=== PATIENT | male | born 1995 | race African-American/Black ===

== ENCOUNTER 2017-09-13 22:48 | Emergency (ER) | payer MEDICAID, MEDICARE, OTHER ==
[~2017-09-13] VITALS: Ht 193 cm; Wt 64.5 kg
[2017-09-13 22:49] VITALS: BP 140/64
[2017-09-13] MEDS ORDERED: SENN-87 PO (23:38)
[2017-09-13] MEDS ORDERED: BACLOFEN (23:38)
== END 2017-09-14 01:55 | disposition home or self-care (01) ==
LOC: ED 09-14 01:49
DX: R31.0 Gross hematuria (principal)
CPT/HCPCS: 81001; 87077; 87086; 87147; 99284

== ENCOUNTER 2017-09-15 11:13 | Emergency (ER) | payer MEDICAID ==
[~2017-09-15] VITALS: Ht 193 cm; Wt 72.7 kg
[~2017-09-15 11:13] MED LIST: BACLOFEN; SENN-87 PO
[2017-09-15 11:16] VITALS: BP 129/81
== END 2017-09-15 12:21 | disposition home or self-care (01) ==
LOC: ED 12:15
DX: G82.20 Paraplegia, unspecified (principal)
CPT/HCPCS: 51701; 99284; P9612

== ENCOUNTER 2017-10-14 14:10 | Emergency (ER) | payer MEDICAID ==
[~2017-10-14] VITALS: Ht 193 cm; Wt 65.0 kg
[2017-10-14 14:16] VITALS: BP 131/77
== END 2017-10-14 14:46 | disposition home or self-care (01) ==
LOC: ED 14:20
DX: Z76.0 Encounter for issue of repeat prescription (principal); G82.20 Paraplegia, unspecified
CPT/HCPCS: 99283

== ENCOUNTER 2018-06-14 11:35 | Emergency (ER) | payer MEDICAID ==
[2018-06-14 11:58] VITALS: BP 100/64
[2018-06-14 13:01] LABS: MICROSCOPIC INDICATED
[2018-06-14 13:06] LABS: CULTURE INDICATED? YES
== END 2018-06-14 13:53 | disposition home or self-care (01) ==
LOC: ED 12:45
DX: R30.0 Dysuria (principal); G82.20 Paraplegia, unspecified
CPT/HCPCS: 81001; 87086; 99284

== ENCOUNTER 2019-05-07 10:56 | Emergency (ER) | payer MEDICAID ==
[~2019-05-07] VITALS: Ht 193 cm; Wt 65.9 kg
[~2019-05-07 10:56] MED LIST changes: -SENN-87 PO; +SENN-88 PO
[2019-05-07 10:58] VITALS: BP 131/81
== END 2019-05-07 13:50 | disposition home or self-care (01) ==
LOC: ED 13:20
DX: Z00.8 Encounter for other general examination (principal)
CPT/HCPCS: 99281

== ENCOUNTER 2019-07-28 17:27 | Emergency (ER) | payer MEDICAID ==
[~2019-07-28] VITALS: Ht 193 cm; Wt 63.6 kg
[2019-07-28 17:29] VITALS: BP 124/78
--- NOTE | 2019-07-28 18:02 | NUR ---
Provider to bedside to assess wound with policy writer typist as heel breaster Partial thickness wound noted to right glute. Wound clean. plan to re-dress then provided referral for outpatient wound care
--- NOTE | 2019-07-28 18:50 | NUR ---
left gluteal wound cleansed with wound cleanser then medihoney placed on wound followed by optifoam dressing Per provider ordered attempted to locate of donut for pressure relieving in central supply to no avail. patient reccomended to but foam cusion and cut out portion where existing eound is as well as importance of moving hips prior to discharge patient provided with 4 extra optifoam dressings as well as the rest of the tube of medihoney for use until he can see the referred auto clutch specialist
== END 2019-07-28 19:40 ==
LOC: ED 17:49
DX: L89.313 Pressure ulcer of right buttock, stage 3 (principal)
CPT/HCPCS: 99283

== ENCOUNTER 2019-08-28 09:48 | Emergency (ER) | payer MEDICAID ==
[~2019-08-28] VITALS: Ht 198.1 cm; Wt 65.0 kg
--- NOTE | 2019-08-28 12:12 | NUR ---
Patient/Caregiver given discharge instructions and they have confirmed that they understand the instructions. Patient ambulatory with steady gait.
[2019-08-28 12:16] VITALS: BP 143/69
== END 2019-08-28 12:18 | disposition home or self-care (01) ==
LOC: ED 12:15
DX: G82.20 Paraplegia, unspecified (principal); Z76.0 Encounter for issue of repeat prescription
CPT/HCPCS: 99281

== ENCOUNTER 2021-06-09 13:48 | Inpatient (IN) | payer MEDICAID ==
[~2021-06-09] VITALS: Ht 208.3 cm; Wt 62.1 kg
[~2021-06-09 13:48] MED LIST changes: +SENN-190 PO; -SENN-88 PO
[2021-06-09 14:38] LABS: BASOPHILS % (AUTO) 0 % (0-1); EOSINOPHILS % (AUTO) 0 % (1-7); LYMPHOCYTES % (AUTO) 4 % (22-44); MEAN CORPUSCULAR HEMOGLOBIN 27.4 pg (27.5-34.5); MEAN CORPUSCULAR HGB CONC 33.2 g/dL (33.2-36.2); MONOCYTES % (AUTO) 5 % (2-9); NEUTROPHILS % (AUTO) 90 % (42-75); PLATELET COUNT 211 x10^3/uL (130-400); RED BLOOD COUNT 5.18 x10^6/uL (4.38-5.82); RED CELL DISTRIBUTION WIDTH 14.1 % (9.4-14.8)
[2021-06-09 14:48] LABS: ALBUMIN 3.5 g/dL (3.4-5.0); ANION GAP 9 mmol/L (5-15); CALCIUM 8.9 mg/dL (8.5-10.1); CHLORIDE 102 mmol/L (98-107)
--- NOTE | 2021-06-09 15:32 | NUR ---
priming machine operator note: Pt to room from lobby.
--- NOTE | 2021-06-09 15:37 | NUR ---
PT TO ROOM, PT C/O UTI SYMPTOMS OF FEVER, BODY ACHES, GENERALIZED PAIN WITH POLO. PT STATES THESE ARE THE SAME SYMPTOMS OF HIS LAST UTI. 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 PT CATH HIMSELF USUALLY. CALL LIGHT WITHIN REACH
--- NOTE | 2021-06-09 15:41 | NUR ---
ERP AT BS FOR EVAL
[2021-06-09] MEDS ORDERED: ACETAMINOPHEN 500 MG TABLET ONE (15:59)
--- NOTE | 2021-06-09 16:15 | NUR ---
PIV PLACED, LABS DRAWN. PT MEDICATED PER EMAR.
--- NOTE | 2021-06-09 16:20 | NUR ---
BLOOD CULTURES DRAWN X2
[2021-06-09] MEDS ORDERED: SODIUM CHLORIDE 0.9% 1,000ML IVBOLUS ONE (16:30)
[2021-06-09] MEDS ORDERED: ACETAMINOPHEN 500 MG TABLET PO ONE (16:30)
--- NOTE | 2021-06-09 17:05 | NUR ---
PT TOLERATED STRAIGHT CATH WELL. TISHA. URINE SAMPLE WALKED TO LAB
[2021-06-09 17:25] LABS: MICROSCOPIC INDICATED
[2021-06-09] MEDS ORDERED: CEFTRIAXONE 1,000 MG in DEXTROSE 5% 50 ML IVPB ONE (17:30)
--- NOTE | 2021-06-09 18:54 | NUR ---
REPORT TO ZEESHAN KHALIL
--- NOTE | 2021-06-09 18:55 | NUR ---
RECEIVED REPORT OF STEPHANI BYERS. TRANSFER OF CARE
--- NOTE | 2021-06-09 18:58 | NUR ---
US AT BEDSIDE
[2021-06-09] MEDS ORDERED: ONDANSETRON ODT 4 MG PO PRN (19:30)
[2021-06-09] MEDS ORDERED: ACETAMINOPHEN 325 MG TABLET PO PRN (19:30)
[2021-06-09] MEDS ORDERED: POLYETHYLENE GLYCOL 17 GM PACKET PO PRN (19:30)
[2021-06-09] MEDS ORDERED: CEFTRIAXONE 1,000 MG in DEXTROSE 5% 50 ML IVPB SCH (19:30)
[2021-06-09] MEDS ORDERED: BISACODYL 10 MG SUPP PR PRN (19:30)
--- NOTE | 2021-06-09 19:53 | NUR ---
Patient is resting comfortably in bed. Bed in lowest, rails engaged, call light on lap. Vital Signs within normal limits. WCTM. GF AT BEDSIDE. TISHA
--- NOTE | 2021-06-09 19:56 | NUR ---
GAVE REPORT TO ANNALISA BYERS
[2021-06-09 20:24] VITALS: BP 113/70
[2021-06-09] MEDS: HEPARIN 5,000 UNITS/ML, 1ML SQ SCH (20:43)
[2021-06-09] MEDS: SODIUM CHLORIDE 0.9% 1,000 ML IV SCH (20:43)
[2021-06-10 02:00] VITALS: BP 94/58
[2021-06-10] MEDS: HEPARIN 5,000 UNITS/ML, 1ML SQ SCH ×3 (03:17→19:40)
[2021-06-10] MEDS: SODIUM CHLORIDE 0.9% 1,000 ML IV SCH ×3 (03:17→19:39)
[2021-06-10 08:25] VITALS: BP 112/65
[2021-06-10] MEDS: SENNOSIDES 8.6 MG TABLET PO SCH (09:00)
[2021-06-10 10:23] LABS: BASOPHILS % (AUTO) 0 % (0-1); EOSINOPHILS % (AUTO) 0 % (1-7); LYMPHOCYTES % (AUTO) 7 % (22-44); MEAN CORPUSCULAR HEMOGLOBIN 27.3 pg (27.5-34.5); MEAN CORPUSCULAR HGB CONC 33.1 g/dL (33.2-36.2); MEAN PLATELET VOLUME 8.5 fL (7.4-10.4); MONOCYTES % (AUTO) 4 % (2-9); NEUTROPHILS % (AUTO) 89 % (42-75); PLATELET COUNT 185 x10^3/uL (130-400); RED BLOOD COUNT 4.19 x10^6/uL (4.38-5.82); RED CELL DISTRIBUTION WIDTH 14.1 % (9.4-14.8)
[2021-06-10 10:25] LABS: CALCIUM 8.6 mg/dL (8.5-10.1); CREATININE 0.57 mg/dL (0.7-1.3)
[2021-06-10 10:34] LABS: ANION GAP 8 mmol/L (5-15); CHLORIDE 109 mmol/L (98-107)
[2021-06-10 13:42] VITALS: BP 104/66
[2021-06-11] MEDS: SODIUM CHLORIDE 0.9% 1,000 ML IV SCH (02:35)
[2021-06-11] MEDS: HEPARIN 5,000 UNITS/ML, 1ML SQ SCH ×2 (02:35→10:04)
[2021-06-11 02:38] VITALS: BP 106/65
[2021-06-11 07:54] VITALS: BP 112/71
[2021-06-11] MEDS: SENNOSIDES 8.6 MG TABLET PO SCH (09:00)
[2021-06-11 10:15] LABS: BASOPHILS % (AUTO) 1 % (0-1); EOSINOPHILS % (AUTO) 0 % (1-7); LYMPHOCYTES % (AUTO) 10 % (22-44); MEAN CORPUSCULAR HEMOGLOBIN 27.3 pg (27.5-34.5); MEAN CORPUSCULAR HGB CONC 33.1 g/dL (33.2-36.2); MEAN PLATELET VOLUME 8.5 fL (7.4-10.4); MONOCYTES % (AUTO) 5 % (2-9); NEUTROPHILS % (AUTO) 85 % (42-75); PLATELET COUNT 208 x10^3/uL (130-400); RED BLOOD COUNT 3.99 x10^6/uL (4.38-5.82); RED CELL DISTRIBUTION WIDTH 13.9 % (9.4-14.8)
[2021-06-11 10:27] LABS: ALBUMIN 2.3 g/dL (3.4-5.0); ANION GAP 7 mmol/L (5-15); CALCIUM 8.4 mg/dL (8.5-10.1); CHLORIDE 110 mmol/L (98-107)
[2021-06-11 10:30] LABS: ALANINE AMINOTRANSFERASE 23 U/L (12-78); ALKALINE PHOSPHATASE 102 U/L (45-117); BILIRUBIN,TOTAL 0.9 mg/dL (0.2-1.0); CREATININE 0.55 mg/dL (0.7-1.3); TOTAL PROTEIN 6.5 g/dL (6.4-8.2)
[2021-06-11 13:52] VITALS: BP 97/60
[2021-06-11] MEDS ORDERED: LEVO750T6 PO (16:07)
[2021-06-11] MEDS ORDERED: LEVOFLOXACIN 750 MG TABLET PO ONE (16:30)
== END 2021-06-11 18:09 | disposition home or self-care (01) | DRG 720 ==
LOC: ED 14:00 → EDIP 19:12 → 3N 20:18
PROVIDERS: ADMIT Internal Medicine; ATTEND Family Medicine
PROC: 0T9B70Z Drainage of Bladder with Drainage Device, Via Natural or Artificial Opening (ICD-10-PCS; principal; 2021-06-09)
DX: A41.9 Sepsis, unspecified organism (principal); G82.20 Paraplegia, unspecified; S21.93XA Puncture wound without foreign body of unspecified part of thorax, initial encounter; T83.518A Infection and inflammatory reaction due to other urinary catheter, initial encounter; N30.01 Acute cystitis with hematuria; F12.90 Cannabis use, unspecified, uncomplicated; F17.200 Nicotine dependence, unspecified, uncomplicated; N45.3 Epididymo-orchitis; Y84.6 Urinary catheterization as the cause of abnormal reaction of the patient, or of later complication, without mention of misadventure at the time of the procedure; N50.819 Testicular pain, unspecified; N31.9 Neuromuscular dysfunction of bladder, unspecified; Z91.040 Latex allergy status; Y93.89 Activity, other specified; Y92.89 Other specified places as the place of occurrence of the external cause; Y99.8 Other external cause status
CPT/HCPCS: 36415; 76870; 80048; 80053; 81001; 82040; 83605; 85025; 87040; 87077; 87086; 87147; 87186; 96365; 99285; G0378; J0696; J1644; J7030